=== PATIENT | female | born 1985 | race Caucasian/White ===

== ENCOUNTER 2017-02-05 10:33 | Emergency (ER) | payer MEDICAID ==
[~2017-02-05] VITALS: Ht 160 cm; Wt 97.5 kg
[~2017-02-05 10:33] MED LIST: PREN-96 PO
[2017-02-05 11:07] LABS: Basophils # (auto) 0 uL; Basophils % (auto) 0.1 % (0.0-2.0); Eosinophils # (auto) 0 uL; Hematocrit 40.4 % (36.0-46.0); Hemoglobin 13.6 g/dL (12.2-16.2); Lymphocytes # (auto) 0.4 uL; Lymphocytes % (auto) 5.8 % (10.0-50.0); Mean Corpuscular Hemoglobin 29.8 pg (28.0-32.0); Mean Corpuscular Hgb Conc. 33.7 g/dL (32.0-36.0); Mean Corpuscular Volume 88.5 fL (80.0-100.0); Mean Platelet Volume 7.8 fL (7.4-10.4); Monocytes # (auto) 0.2 uL; Neutrophils # (auto) 7.1 uL; Neutrophils % (auto) 91.1 % (37.0-80.0); Platelet Count (auto) 274 10^3/uL (140-450); Red Cell Distribution Width 13.9 % (11.6-16.0); White Blood Cell 7.8 10^3/uL (4.4-10.8)
[2017-02-05 11:45] LABS: Albumin 3.1 g/dL (3.4-5.0); BUN/Creatinine Ratio 8.3; Bilirubin, Total 0.5 mg/dL (0.2-1.0); Calcium 8.7 mg/dL (8.5-10.1); Potassium 3.7 mmol/L (3.5-5.1); Total Protein 7.2 g/dL (6.4-8.2)
[2017-02-05] MEDS ORDERED: SODIUM CHLORIDE 0.9% 1,000 ML IV ONE (13:09)
[2017-02-05 14:49] VITALS: BP 122/70
== END 2017-02-05 15:55 | disposition home or self-care (01) ==
LOC: ER 10:33
DX: O26.892 Other specified pregnancy related conditions, second trimester (principal); R11.2 Nausea with vomiting, unspecified; Z34.92 Encounter for supervision of normal pregnancy, unspecified, second trimester; Z3A.17 17 weeks gestation of pregnancy; Z88.8 Allergy status to other drugs, medicaments and biological substances
CPT/HCPCS: 36415; 76805; 80053; 84702; 85025; 96360; 99285; J7030

== ENCOUNTER 2017-02-06 21:59 | Emergency (ER) | payer MEDICAID ==
[~2017-02-06] VITALS: Ht 160 cm; Wt 97.5 kg
[2017-02-06 22:43] LABS: Basophils # (auto) 0 uL; Basophils % (auto) 0.2 % (0.0-2.0); Eosinophils # (auto) 0 uL; Eosinophils % (auto) 0.3 % (0.0-7.0); Hematocrit 39.8 % (36.0-46.0); Hemoglobin 13.5 g/dL (12.2-16.2); Lymphocytes # (auto) 1.1 uL; Lymphocytes % (auto) 15.7 % (10.0-50.0); Mean Corpuscular Volume 88.4 fL (80.0-100.0); Mean Platelet Volume 7.9 fL (7.4-10.4); Monocytes # (auto) 0.4 uL; Neutrophils # (auto) 5.6 uL; Neutrophils % (auto) 77.8 % (37.0-80.0); Platelet Count (auto) 294 10^3/uL (140-450); Red Cell Distribution Width 14.1 % (11.6-16.0); White Blood Cell 7.2 10^3/uL (4.4-10.8)
[2017-02-06 23:09] LABS: Albumin 2.9 g/dL (3.4-5.0); Alkaline Phosphatase 68 U/L (45-117); Amylase 40 U/L (25-115); Anion Gap 12 (5-15); Aspartate Aminotransferase 14 U/L (15-37); BUN/Creatinine Ratio 8.3; Bilirubin, Total 0.3 mg/dL (0.2-1.0); Blood Urea Nitrogen 6 mg/dL (7-18); Calcium 8.2 mg/dL (8.5-10.1); Carbon Dioxide 20 mmol/L (21-32); Chloride 108 mmol/L (98-107); GFR African American 123 mL/min; GFR Non-African American 102 mL/min; Glucose 107 mg/dL (74-106); Magnesium 2.4 mg/dL (1.6-2.6); Sodium 140 mmol/L (136-145)
[2017-02-06 23:22] LABS: INR 0.92 (0.9-1.15); Partial Thromboplastin Time 25.1 sec (22.64-33.71); Prothrombin Time 9.9 sec (9.37-12.3)
[2017-02-07] MEDS ORDERED: ONDANSETRON HCL 4 MG/2 ML VIAL IV ONE
[2017-02-07] MEDS ORDERED: SODIUM CHLORIDE 0.9% 1,000 ML IV ONE
[2017-02-07] MEDS ORDERED: ACETAMINOPHEN 500 MG TAB PO ONE (02:30)
[2017-02-07 03:11] LABS: Urine Bilirubin Negative (Negative); Urine Blood Negative /uL (Negative); Urine Ca Oxalate Crystal FEW (None Seen); Urine Color Yellow (Yellow); Urine Glucose Normal (Normal); Urine Mucus FEW (None Seen); Urine Nitrite Negative (Negative); Urine RBC 3 /hpf (0 - 4); Urine Squamous Epithelial Cell MOD /hpf (<5); Urine Urobilinogen Normal (Negative)
[2017-02-07 03:55] LABS: Urine Ketone 1+ (Negative)
[2017-02-07 04:46] VITALS: BP 109/61
== END 2017-02-07 05:03 | disposition home or self-care (01) ==
LOC: ER 22:00
DX: O26.892 Other specified pregnancy related conditions, second trimester (principal); R11.2 Nausea with vomiting, unspecified; Z88.8 Allergy status to other drugs, medicaments and biological substances
CPT/HCPCS: 36415; 76705; 80053; 81001; 82150; 82962; 83690; 83735; 84484; 85025; 85610; 85730; 93005; 96361; 96374; 99285; J2405